=== PATIENT | female | born 1990 | race Two or more races ===

== ENCOUNTER 2024-08-04 15:18 | Emergency (ER) | payer OTHER, SELFPAY ==
[2024-08-04 15:53] VITALS: BP 129/63; PULSE 63; RESP 20; TEMP 37; O2SAT 96
--- NOTE | 2024-08-04 16:07 | EDNOTE_ITS ---
ED Back Injury Pain RME/HPI General Chief Complaint: Back Pain/Injury Stated Complaint: BACK PAIN Time Seen by Provider: 08/04/24 16:04 Arrival date/time: 08/04/24 15:18 33-year-old female presents emergency department today complaints of pain to right buttock patient reports has a history of sciatica patient reports that she injured her back while at work today patient reports that she was bending and lifting and injured her back patient reports no direct trauma. Patient reports no saddle anesthesia no loss of bowel or bladder patient reports no fever or vomiting noted no chance of Limitations: no limitations Related Data Previous Rx's ?Medication ?Instructions ?Recorded diphenhydramine HCl 25 mg capsule 25 mg PO Q8H PRN all ergic symptoms 10/12/21 (Benadryl) #30 caps peg 3350-electrolytes 236 240 ml PO Q10M #4,000 mL gram-22.74 gram-6.74 gram-5.86 gram solution (Golytely) cyclobenzaprine 10 mg tablet 10 mg PO TID PRN muscle s pasm 10 08/04/24 days #30 tab-caps hydrocodone 5 mg-acetaminophen 325 1 tab PO BID PRN pa in #6 tabs 08/04/24 mg tablet ibuprofen 800 mg tablet 800 mg PO TID PRN pain #30 t abs 08/04/24 Allergies Allergy/AdvReac Type Severity Reaction Status Date / Time No Known Allergies Allergy Verified 08/04/24 15:21 Review of Systems Review of Systems Systems Reviewed: All systems reviewed, normal except as documented Constitutional Constitutional: Reports system reviewed and no additional complaints, except as documented, Denies fever(s) and Denies headache(s) Eyes Eyes: Reports system reviewed and no additional complaints, except as documented and Denies blurry vision ENT Ears, Nose, Mouth, and Throat: Reports system reviewed and no additional complaints, except as documented, Denies headache(s), Denies nasal congestion and Denies nasal discharge Cardiovascular Cardiovascular: Reports system reviewed and no additional complaints, except as documented, Denies chest pain and Denies dyspnea Respiratory Respiratory: Reports system reviewed and no additional complaints, except as documented, Denies chest congestion, Denies cough and Denies dyspnea Gastrointestinal Gastrointestinal: Reports system reviewed and no additional complaints, except as documented and Denies abdominal pain Musculoskeletal Musculoskeletal: Reports system reviewed and no additional complaints, except as documented and Reports back pain (Right buttock pain) Integumentary/Breasts Skin/Breast: Reports system reviewed and no additional complaints, except as documented and Denies rash Neurologic Neurologic: Reports system reviewed and no additional complaints, except as documented, Reports as per HPI and Denies headache(s) Past Medical History Past Medical History CARDIAC: Negative Congestive Heart Failure RESPIRATORY: Negative Chronic Obstructive Pulmonary Disease (COPD) GENITOURINARY: Negative Renal Disease ENDOCRINE: Negative Diabetes Mellitus Type 1 or Diabetes Mellitus Type 2 Social History SMOKING STATUS: Never smoker ED Exam General Limitations: Present no limitations General appearance: Present alert and in no apparent distress Head Head exam: Present atraumatic, normocephalic and normal inspection Eye Eye exam: Present normal appearance, PERRL and EOMI ENT ENT exam: Present normal exam, normal oropharynx and mucous membranes moist Neck Neck exam: Present normal inspection, full ROM and trachea midline Chest Chest inspection: Present normal inspection and symmetric chest wall rise Respiratory Respiratory exam: Present normal lung sounds bilaterally Cardiovascular Cardiovascular exam: Present regular rate, normal rhythm and normal heart sounds Abdominal Exam Abdominal exam: Present soft and normal bowel sounds; Absent distention or tenderness Extremities Exam Extremities exam: Present normal inspection and full ROM Back Exam Back exam: Present normal inspection, full ROM, tenderness, muscle spasm, paraspinal tenderness, sciatic notch tenderness (R) and straight leg raise (R); Absent CVA tenderness (R) or CVA tenderness (L) Back 1 view image: 2 1. Right buttock pain rating down the right leg Neurological Exam Neurological exam: Present alert, oriented X3 and CN II-XII intact Psychiatric Psychiatric exam: Present normal affect and normal mood Skin Skin exam: Present warm, dry, intact and normal color Course Quality Measures none Orders Category Date Time Status Diazepam [Valium] Med 08/04/24 16:04 Discontinued 10 mg PO X1 ONE Ketorolac Inj [Toradol Inj] Med 08/04/24 16:04 Discontinued 30 mg IM X1 ONE Vital Signs Vital signs: Vital Signs Temperature 98.6 F 08/04/24 15:53 Pulse Rate 63 08/04/24 15:53 Respiratory Rate 20 08/04/24 15:53 Blood Pressure 129/63 08/04/24 15:53 Pulse Oximetry (%) 96 08/04/24 15:53 Oxygen Delivery Method Room Air 08/04/24 15:53 O2 saturation 96% on room air within normal limits Back Pain / Injury MDM Narrative MDM Narrative:: 33-year-old female presents emergency department today complaints of pain to right buttock patient reports has a history of sciatica patient reports that she injured her back while at work today patient reports that she was bending and lifting and injured her back patient reports no direct trauma. Patient reports no saddle anesthesia no loss of bowel or bladder patient reports no fever or vomiting noted no chance of On exam patient well-appearing patient does not appear ill or toxic in no acute distress Workmen's Compensation papers completed patient struck to follow-up with Workmen's Compensation doctor Patient data External records reviewed:: [facility] previous records Clinical information provided by:: patient Social determinants that could affect healthcare access:: none Patient has the following chronic illnesses:: See history How is presenting disease/condition affected by chronic disease/condition?: u neffected by Evaluation data The following diagnostics were reviewed and interpreted by me:: other (specify) (N/A) Lab and/or radiology exams considered but not ordered:: N/A Interpretation Summary: N/A Medications / Prescriptions Medications or Prescriptions considered but not ordered:: Given Medication administrations:: Medication Administration History Discontinued Medications Diazepam (Diazepam 5 Mg Tablet) 10 mg PO X1 ONE Stop: 08/04/24 16:05 Last Admin: 08/04/24 16:15 Dose: 10 mg Documented By: DORENE Ketorolac Tromethamine (Ketorolac Inj 30 Mg/Ml Vial) 30 mg IM X1 ONE Stop: 08/04/24 16:05 Last Admin: 08/04/24 16:16 Dose: 30 mg Documented By: DORENE Given Consultations Consultation(s) initiated? (list below): No Diagnosis Differential diagnosis back pain/injury: lumbar radiculopathy, sciatica and strain of lumbar region Most likely diagnosis given after review of the tests above:: Sciatica work-related injury Admission Indicated Admission indicated?: not indicated Admission Request Was there a request for admission?: No Disposition Plan Disposition Plan: Discharge Discharge Attestation Discharge Attestation: The patient and all family members were given an opportunity to ask questions and understood the discharge instructions. Discharge instructions specifically effects, indications for sooner follow up or return to the emergency department, and the expected course of current diagnosis. Patient condition: Stable Discharge Plan Plan Patient Disposition: HOME (Self Care) Disposition Comment: Stable Prescriptions/Referrals Prescriptions/Med Rec: New cyclobenzaprine 10 mg tablet 10 mg PO TID PRN (Reason: muscle spasm) 10 Days Qty: 30 0RF hydrocodone-acetaminophen 5-325 mg tablet 1 tab PO BID MDD 10 PRN (Reason: pain) Qty: 6 0RF ibuprofen 800 mg tablet 800 mg PO TID PRN (Reason: pain) Qty: 30 0RF No Action diphenhydramine HCl [Benadryl] 25 mg capsule 25 mg PO Q8H PRN (Reason: allergic symptoms) Qty: 30 0RF peg 3350-electrolytes [Golytely] 236-22.74-6.74 -5.86 gram recon soln 240 ml PO Q10M Qty: 4000 0RF Rx Instructions: until fecal effluent is clear Problem List Clinical Impression: Sciatica Patient/Caregiver Discharge Instructions Education Materials: Self Care Back Day Additional Instructions: Please follow up with your primary care doctor in the next 24-48hrs for any worsening symptoms return here immediately Print Language: Korean Stand Alone Forms: Spring Award Info., Work/School Release, Patient Portal Info Letter PA/SERVICE COORDINATOR Supervising Physician PA/SERVICE COORDINATOR Supervising Physician: dr edwards
[2024-08-04] MEDS: DIAZEPAM 5 MG TABLET 10 MG PO (16:15)
[2024-08-04] MEDS: KETOROLAC INJ 30 MG/ML VIAL IM (16:16)
== END 2024-08-04 17:41 | disposition home or self-care (01) ==
PROVIDERS: Emergency Provider Emergency Medicine
DX: M54.40 Lumbago with sciatica, unspecified side (principal)
CPT/HCPCS: 96372; 99283; J1885; A9270